=== PATIENT | male | born 1965 | race Caucasian/White ===

== ENCOUNTER 2019-04-01 13:50 | Inpatient (IN) | payer SELFPAY ==
[~2019-04-01] VITALS: Ht 182.9 cm; Wt 70.3 kg
[2019-04-01 13:53] VITALS: BP 125/65
--- NOTE | 2019-04-01 14:00 | NUR ---
Kyra ross in [facility] - 04/01/19 at 1633 by [email or web address] CALLED PT'S NAME, UNABLE TO FIND PT.
--- NOTE | 2019-04-01 14:05 | NUR ---
Kyra ross in ED - 04/01/19 at 1622 by MEDDCV CALLED PT AGAIN, WENT TO OUTSIDE TO CALL PT. NO RESPONSE. CHARGE NURSE MADE AWARE PT LWBS.
--- NOTE | 2019-04-01 16:23 | NUR ---
PATIENT TAKEN TO ER BED 12.
--- NOTE | 2019-04-01 16:30 | NUR ---
PT BIBA TO ED FOR ETOH, PT WAS FOUND AT A BUS STOP, DRINKING RUN ONE AND HALF BOTTLE, BS IN FIELD 110MG/DL. PT AWAKE, ALERT, DIFFICULT TO PROVIDE INFORMATION. RESPONDING BUT INCOHERENT. RR EVEN UNLABORED, IN NO DISTRESS AT THIS TIME. ED MD DR. AN MADE AWARE, WILL CONTINUE TO MONITOR CLOSELY. BED IN LOWEST POSITION.
[2019-04-01] MEDS ORDERED: MULTIVITAMIN-12 10 ML, THIAMINE 100 MG, FOLIC ACID 1 MG, MAGNESIUM SULFATE 50% 2,000 MG... IV SCH ×5 (17:00)
[2019-04-01] MEDS ORDERED: ONDANSETRON 4 MG/2 ML VIAL IVP ONE ×2 (17:00)
[2019-04-01] MEDS ORDERED: FOLIC ACID 5 MG/ML SYR ONE (17:26)
[2019-04-01] MEDS ORDERED: MULTIVITAMIN-12 10 ML VIAL IV ONE ×2 (17:26→22:03)
[2019-04-01] MEDS ORDERED: THIAMINE 200 MG/2 ML VIAL ONE ×2 (17:26→22:03)
[2019-04-01] MEDS ORDERED: MAG SULF 2000 MG/WATER PREMIX 50 ML IV ONE ×2 (17:30→18:55)
--- NOTE | 2019-04-01 17:40 | NUR ---
PT ATTEMPTING TO LEAVE ED, PT WITH UNSTEADY GAIT, UNABLE TO PROVIDE CORRECT ANSWER TO QUESTIONS BEING ASK. DR. AN, CHARGE NURSE APRIL ZUNIGA, SECURITY TALKED TO PT AND EXPLAINED THE RISKS OF LEAVING ED. PT AGREED TO STAY. WENT BACK TO BED 12, PROVIDED WITH MEDICATION ORDERED BY ED MD AND FOOD. WILL CONTINUE TO MONITOR CLOSELY.
[2019-04-01 17:42] LABS: BASOPHILS # (AUTO) 0.1 K/uL (0.00-0.22); BASOPHILS % (AUTO) 1.1 % (0.0-2.0); EOSINOPHILS # (AUTO) 0.7 K/uL (0-0.4); EOSINOPHILS % (AUTO) 11.8 % (0.0-4.0); HEMATOCRIT 33.6 % (36-52); HEMOGLOBIN 11.5 g/dL (12.0-18.0); LYMPHOCYTES # (AUTO) 2.2 K/uL (2.0-11.5); LYMPHOCYTES % (AUTO) 39.9 % (20.5-51.1); MEAN CORPUSCULAR HEMOGLOBIN 33 pg (27-31); MEAN CORPUSCULAR HGB CONC 34 g/dL (33-37); MEAN CORPUSCULAR VOLUME 96.3 fL (80-94); MONOCYTES # (AUTO) 0.3 K/uL (0.8-1.0); MONOCYTES % (AUTO) 5.8 % (1.7-9.3); NEUTROPHILS # (AUTO) 2.3 K/uL (1.8-7.7); NEUTROPHILS % (AUTO) 41.4 % (42.2-75.2); PLATELET COUNT (AUTO) 308 K/uL (140-450); RED BLOOD CELL COUNT(AUTO) 3.49 MIL/uL (4.20-6.10); RED CELL DISTRIBUTION WIDTH 14.5 % (11.6-13.7); WHITE BLOOD COUNT (AUTO) 5.6 K/uL (4.8-10.8)
[2019-04-01 18:03] LABS: ANION GAP 16.1 (8-16); CARBON DIOXIDE 25.9 mmol/L (21-32); CHLORIDE 105 mmol/L (98-107); CREATININE 1.3 mg/dL (0.7-1.3); GFR ARICAN-AMERICAN 74 mL/min (>90); GLUCOSE 95 mg/dL (74-106); SODIUM SERUM 143 mmol/L (136-145); UREA NITROGEN, BLOOD 27 mg/dL (7-18)
[2019-04-01 18:08] LABS: ALBUMIN 3.7 g/dL (3.4-5.0); ASPARTATE AMINOTRANSFERASE 23 U/L (15-37); SALICYLATE < 2.8 mg/dL (2.8-20.0); TOTAL BILIRUBIN 0.3 mg/dL (0.0-1.0)
[2019-04-01 18:09] LABS: ACETAMINOPHEN < 0.5 ug/ml (10-30)
[2019-04-01] MEDS ORDERED: LORazepam 2 MG/ML VIAL IVP PRN (18:55)
[2019-04-01] MEDS ORDERED: HYDROcodone/APAP 5/325 MG 1 TAB TAB PO PRN (18:55)
[2019-04-01] MEDS ORDERED: KETOROLAC 30 MG/ML VIAL IVP PRN (18:55)
[2019-04-01] MEDS ORDERED: DOCUSATE SODIUM 100 MG GELCAP PO PRN (18:55)
[2019-04-01] MEDS ORDERED: MORPHINE SULFATE 2 MG/ML SYR IVP PRN (18:55)
[2019-04-01] MEDS ORDERED: ONDANSETRON 4 MG/2 ML VIAL IM/IVP PRN (18:55)
[2019-04-01] MEDS ORDERED: ACETAMINOPHEN 325 MG TAB PO PRN (18:55)
[2019-04-01] MEDS ORDERED: THIAMINE 200 MG/2 ML VIAL IM ONE (19:00)
[2019-04-01] MEDS ORDERED: FOLIC ACID 5 MG/ML SYR IM ONE (19:00)
[2019-04-01] MEDS ORDERED: MULTIVITAMIN-12 10 ML in NACL 0.9% 1,000 ML IV ONE ×2 (19:00→19:15)
--- NOTE | 2019-04-01 19:30 | NUR ---
PT IN BED RESTING COMFORTABLY, IN NO DISTRESS AT THIS TIME.
[2019-04-01 20:00] VITALS: BP 101/59
--- NOTE | 2019-04-01 20:00 | NUR ---
RECEIVED PT FROM BUS MECHANICAPRIL HINKLE. A/O X1 PERSON. DISCUSSED PLAN OF CARE. REINFORCEMENT NEEDED. NASAL CANULA 2L. NO RESPIRATORY DISTRESS. SKIN IS INTACT. L AC 20 G. PATENT AND INTACT, INFUSING MAG. R HAND 20G PATENT AND INTACT SALINE LOCK. AMBULATORY. UNSTEADY GAIT FROM DX. FALL RISK PROTOCOL IN PLACE. BED IN LOWEST POSITION. CALL LIGHT WITHIN REACH. VITALS WNL. NPO EXCEPT MEDS. WILL CONTINUE.
--- NOTE | 2019-04-01 20:10 | NUR ---
Patient will be admitted to care of DR. PINEDA. Admited to [facility]. Will go to room 111B. Belongings list completed. Bedside Report given to APRIL Herrera.
--- NOTE | 2019-04-01 20:20 | NUR ---
PT DOES NOT WANT TO WEAR FALL RISK GOWN. DOES NOT WANT TO BE BOTHERED. WILL TRY TO PUT ON HIM IN THE MORNING.
--- NOTE | 2019-04-01 20:30 | NUR ---
PT WANTS TO GO AMA BECAUSE THERE IS NO REASON FOR HIM TO BE HERE, SAYS IT IS NOT NECESSARY. EDUCATED ON TREATMENT. SAYS HE WILL TRY TO STAY UNTIL MORNING FOR WHEN DOCTOR SEES HIM. WILL CONTINUE TO MONITOR.
[2019-04-01 21:22] LABS: MAGNESIUM 2.3 mg/dL (1.8-2.4); PHOSPHORUS 5.2 mg/dL (2.5-4.9); THYROID STIMULATING HORMONE 2.45 uIU/mL (0.34-3.74)
[2019-04-01] MEDS ORDERED: LACTULOSE 20 GM/30 ML UDC PO ONE (21:35)
--- NOTE | 2019-04-01 21:45 | NUR ---
DR HILL ORDERED BANANA BAG AND LIBRIUM. WILL ADMINISTER.
--- NOTE | 2019-04-01 21:47 | NUR ---
EMAR MEDS NOT DOCUMENTED BY ER. BANANA BAG AND MAG ORDERED BY DR AN IN ER BUT NO VERIFICATION IF ADMINISTERED. WILL CALL ER.
--- NOTE | 2019-04-01 21:50 | NUR ---
ER DID NOT UPDATE MEDS GIVEN IN ER IN THE EMAR. CALLED ER TO VERIFY IF BANANA BAG AND MAG WAS GIVEN IN ER. ER UNABLE TO VERIFY DUE TO NURSE NOT ON SITE ANYMORE.
--- NOTE | 2019-04-01 22:00 | NUR ---
CALLED DR HILL UNDER DR PINEDA GROUP TO MAKE AWARE OF ER ORDERING BANANA BAG BUT UNABLE TO VERIFY IF IT WAS GIVEN IN ER. SAYS TO ADMINISTER BANANA BAG.
--- NOTE | 2019-04-01 22:04 | NUR ---
PULLED MAG FROM [employer] BUT WASTED DUE TO ER ADMINISTERING IN ER ALTHOUGH NOT DOCUMENTED BY ER. MAG LEFT ON PT IV PUMP EMPTY. AND MAG LEVEL WNL 2.3. DR HILL DAYS NOT TO ADMINISTER. WILL NOT ADMINISTER MAG. ADMINISTERED BANANA BAG.
[2019-04-01] MEDS ORDERED: chlordiazePOXIDE 25 MG CAP ONE (22:13)
[2019-04-01] MEDS: DEXT 5% /NACL 0.9% 1,000 ML IV SCH (22:18)
[2019-04-01 22:38] LABS: APPEARANCE,URINE CLEAR (CLEAR); BILIRUBIN,URINE NEGATIVE (NEGATIVE); BLOOD, URINE NEGATIVE (NEGATIVE); COLOR,URINE YELLOW (YELLOW); LEUKOCYTE ESTERASE ,URINE NEGATIVE (NEGATIVE); NITRITE, URINE NEGATIVE (NEGATIVE); PH,URINE 5.5 (5.0-9.0); UGLUCOSE NEGATIVE (NEGATIVE)
[2019-04-01 23:03] LABS: BARBITURATE, URINE NEG. ng/ml (NEG <=200); BENZODIAZEPINE, URINE NEG. ng/mL (NEG <=200); CANNABINOID, URINE NEG. ng/mL (NEG <=50); COCAINE, URINE NEG. ng/mL (NEG <=300); OPIATE, URINE NEG. ng/mL (NEG <=2000); PHENCYCLIDINE SCREEN,URINE NEG. ng/mL (NEG <=25)
--- NOTE | 2019-04-02 | NUR ---
PT REFUSED TO HAVE VITALS TAKEN. WANTS TO SLEEP. WILL CONTINUE TO MONITOR. HR STABLE 60 ACCORDING TO TELE STRIP.
--- NOTE | 2019-04-02 01:21 | NUR ---
PT SLEEPING IN BED EASILY AROUSABLE. ABLE TO MAKE NEEDS KNOWN. NO SIGNS OF DISTRESS. DOES NOT WANT TO WEAR NC BECAUSE IT BOTHERS HIM. O2 SAT 95. WILL CONTINUE TO MONITOR.
--- NOTE | 2019-04-02 03:28 | NUR ---
PT SLEEPING. NO SIGNS OF RESP DISTRESS. EVEN CHEST RISE. NO SOB. NO COMPLAINTS. NO PAIN AT THIS TIME. WILL CONTINUE TO MONITOR.
--- NOTE | 2019-04-02 04:00 | NUR ---
REFUSED VITALS TO BE TAKEN. WANTS TO SLEEP. NO SIGNS OF LABORED BREATHING. NO SOB. EVEN CHEST RISE. WILL CONTINUE TO MONITOR. CALL LIGHT WITHIN REACH.
[2019-04-02] MEDS: DEXT 5% /NACL 0.9% 1,000 ML IV SCH ×2 (04:51→14:53)
--- NOTE | 2019-04-02 05:50 | NUR ---
SPECIAL EDUCATION RESOURCE ROOM TEACHER AT BEDSIDE.
--- NOTE | 2019-04-02 06:18 | NUR ---
WILL ENDORSE PT TO DAYSHIFT RN FOR CONTINUITY OF CARE. PT IN STABLE CONDITION. WILL CONTINUE TO MONITOR.
--- NOTE | 2019-04-02 07:30 | NUR ---
Report received from night nurse, Pt awake a/o x3 with confusion. Pt denies pain, denies n/v. Call light and personal items within reach, safety and fall precautions in place, will continue to monitor.
[2019-04-02 07:35] LABS: ANION GAP 12.5 (8-16); CARBON DIOXIDE 26.8 mmol/L (21-32); CREATININE 1.1 mg/dL (0.7-1.3); POTASSIUM 4.3 mmol/L (3.5-5.1)
[2019-04-02 07:50] LABS: MAGNESIUM 2.2 mg/dL (1.8-2.4)
[2019-04-02 07:51] LABS: PHOSPHORUS 4.7 mg/dL (2.5-4.9)
[2019-04-02 08:00] VITALS: BP 135/75
[2019-04-02] MEDS ORDERED: CALCIUM ACETATE 667 MG TAB PO ONE (08:00)
--- NOTE | 2019-04-02 08:58 | NUR ---
PATIENT HAS BEEN SCREENED AND CATEGORIZED MODERATE NUTRITION RISK. PATIENT WILL BE SEEN WITHIN 3-5 DAYS OF ADMISSION. 04/04/[address]
[2019-04-02] MEDS ORDERED: THIAMINE 200 MG/2 ML VIAL IV SCH (09:00)
[2019-04-02] MEDS ORDERED: FOLIC ACID 1 MG TAB PO SCH (09:00)
[2019-04-02] MEDS ORDERED: PANTOPRAZOLE 40 MG INJ VIAL IVP SCH (09:00)
[2019-04-02] MEDS ORDERED: THIAMINE 100 MG TAB PO SCH (09:00)
[2019-04-02] MEDS ORDERED: MULTIVITAMIN 1 TAB PO SCH (09:00)
[2019-04-02] MEDS ORDERED: LACTULOSE 20 GM/30 ML UDC PO SCH (09:00)
[2019-04-02] MEDS: chlordiazePOXIDE 25 MG CAP PO SCH ×3 (09:20→17:22)
--- NOTE | 2019-04-02 10:30 | NUR ---
Pt sleeping at this time, appears comfortable, call light and personal items within reach, safety and fall precautions in place, will continue to monitor.
--- NOTE | 2019-04-02 12:07 | NUR ---
PT REFUSED EKG/ECHOCARDIOGRAM. NOTIFIED DR. WELCH AND APRIL OCAMPO
--- NOTE | 2019-04-02 12:30 | NUR ---
Pt refusing treatment and procedures, notified charge nurse and MD and security Attempted to reorient pt and provide reassurance, will reattempt.
--- NOTE | 2019-04-02 12:42 | NUR ---
Pt a/o x2 w confusion agitated, threatening to remove IV lines, states he is [employer] and needs to leave, notified charge nurse, MD and security of pt threats and behavior. Attempted to reorient pt and provide reassurance, Ativan administered per order.
--- NOTE | 2019-04-02 13:00 | NUR ---
Pt sleeping at this time, appears comfortable, call light and personal items within reach, safety and fall precautions in place, will continue to monitor.
[2019-04-02 13:11] LABS: BASOPHILS # (AUTO) 0.1 K/uL (0.00-0.22); BASOPHILS % (AUTO) 1.3 % (0.0-2.0); EOSINOPHILS # (AUTO) 0.5 K/uL (0-0.4); EOSINOPHILS % (AUTO) 12.7 % (0.0-4.0); HEMATOCRIT 33.9 % (36-52); HEMOGLOBIN 11.2 g/dL (12.0-18.0); LYMPHOCYTES # (AUTO) 1.5 K/uL (2.0-11.5); LYMPHOCYTES % (AUTO) 35.4 % (20.5-51.1); MEAN CORPUSCULAR HEMOGLOBIN 33 pg (27-31); MEAN CORPUSCULAR HGB CONC 33 g/dL (33-37); MEAN CORPUSCULAR VOLUME 99.9 fL (80-94); MONOCYTES # (AUTO) 0.4 K/uL (0.8-1.0); MONOCYTES % (AUTO) 9.4 % (1.7-9.3); NEUTROPHILS # (AUTO) 1.8 K/uL (1.8-7.7); NEUTROPHILS % (AUTO) 41.2 % (42.2-75.2); PLATELET COUNT (AUTO) 230 K/uL (140-450); RED BLOOD CELL COUNT(AUTO) 3.39 MIL/uL (4.20-6.10); RED CELL DISTRIBUTION WIDTH 15.1 % (11.6-13.7); WHITE BLOOD COUNT (AUTO) 4.3 K/uL (4.8-10.8)
--- NOTE | 2019-04-02 13:29 | NUR ---
SW attempted to conduct assessment but patient was asleep. SW called patient's name but patient did not respond. SW will attempt to conduct assessment at a later time.
--- NOTE | 2019-04-02 14:11 | NUR ---
Called Rt and US to follow up on ordered exams per both departments, they will repeat attempt to do ordered procedures.
--- NOTE | 2019-04-02 14:30 | NUR ---
US tech at bedside to complete abdominal US, assisted to initiate exam.
--- NOTE | 2019-04-02 14:48 | NUR ---
RT and diesel technician mechanic at bedside to complete exams per order; Dr Foreman cardiolory in house to round on Pt.
[2019-04-02 16:00] VITALS: BP 147/89
--- NOTE | 2019-04-02 16:30 | NUR ---
Pt sleeping at this time, appears comfortable, call light and personal items within reach, safety and fall precautions in place, will continue to monitor. Dr Acosta notifeid echo complete and results pending, also notified results of abdominal us and EKG, and followed up regarding pt current NPO status; per MD pt will remain NPO at this time.
--- NOTE | 2019-04-02 19:15 | NUR ---
Pt sleeping at this time, appears comfortable, family remains at bedside, call light and personal items within reach, safety and fall precautions in place, will continue to monitor. Addendum: 04/02/19 at 1916 by Hollie Garcia RN Pt sleeping at this time, appears comfortable, no family at bedside during shift, call light and personal items within reach, safety and fall precautions in place, Report endorsed to [facility] .
--- NOTE | 2019-04-02 19:16 | NUR ---
RECEIVED REPORT FROM CHIVO CHUN, PT A/O X 3. PERSON, PLACE, TIME. DISCUSSED PLAN OF CARE WITH PT. VERBALIZED UNDERSTANDING. REINFORCEMENT NEEDED. ROOM AIR. NO SIGNS OF RESP DISTRESS. FALL RISK PREC IN PLACE. R FA 20G PATENT AND INTACT. L AC 20 PATENT AND INTACT. BOTH SALINE LOCK. SKIN INTACT. BED IN LOWEST POSITION. CALL LIGHT WITHIN REACH. WILL CONTINUE TO MONITOR.
--- NOTE | 2019-04-02 20:00 | NUR ---
REFUSED PT VITALS. EDUCATED IMPORTANCE OF MONITORING VITALS. DID NOT WANT VITALS TAKEN.
--- NOTE | 2019-04-02 20:30 | NUR ---
PT STATES HE WANTS TO LEAVE AMA. STATES HE HAS TO GO TAKE CARE OF THINGS. EDUCATED ON WHY PT IS HERE AND HIS TREATMENT. STILL WANTS TO LEAVE.
--- NOTE | 2019-04-02 20:35 | NUR ---
SPOKE WITH RESIDENT DR CARMEN PINEDA IN REGARDS TO CONCERN IF HE CAN LEAVE AMA DUE TO HIS MENTAL STATE A/O X3. RESIDENT SAYS THAT PSYCH DR SAYS THAT THIS IS HIS BASELINE SO HE CAN LEAVE AMA IF HE WISHES TO DO SO.
--- NOTE | 2019-04-02 20:40 | NUR ---
SPOKE WITH PT IN REGARDS TO HIS DECISION TO LEAVE. ASKED IF HE NEEDED ANY RESOURCES. EDUCATED AND ADVISED TO STAY. HE STATED NO, HE JUST WANTS TO LEAVE.
--- NOTE | 2019-04-02 21:00 | NUR ---
PT GETTING READY TO LEAVE FACILITY. GETTING CLOTHED AT THE MOMENT. WILL CONTINUE TO MONITOR.
--- NOTE | 2019-04-02 21:20 | NUR ---
REMOVED BOTH IVS. CANNULAS ARE INTACT. NO SIGNS OF DISTRESS. TOLERATED WELL. REMOVED WRIST BANDS. STATES DOES NOT WANT ANYONE TO BE CALLED FOR HIM. HE WILL AMBULATE WITH STANDBY ASSIST, STATES HE DOES NOT WANT TO BE IN WHEELCHAIR. STATES HE WILL WALK TO WHERE HE NEEDS TO GO.
--- NOTE | 2019-04-02 21:30 | NUR ---
ASKED THE PT TO SIT TO BE WHEELED OUT ON WHEEL CHAIR FOR SAFETY MEASURES BECAUSE HIS GAIT LOOKED UNSTEADY. PT REFUSED AND INSISTED HE WILL WALK. WALKED BESIDE PT OUT OF [facility]. ASKED AGAIN IF HE NEEDED RESOURCES FOR A CARE HOME OR IF I COULD CALL SOMEONE FOR HIM. HE STATED NO, HE DOES NOT KEEP IN CONTACT WITH HIS FAMILY. HE STATED HE WANTS TO WALK.
--- NOTE | 2019-04-02 21:31 | NUR ---
PT AMA LEFT IN STABLE CONDITION.
[2019-04-03 09:20] LABS: T4 (THYROXINE) 6.6 ug/dL (4.5-12.0)
== END 2019-04-02 23:20 | disposition left against medical advice (07) | DRG 441 ==
LOC: MED 13:50 → MTU 19:01
PROVIDERS: ADMIT General Practice; ATTEND General Practice
DX: K72.90 Hepatic failure, unspecified without coma (principal); K85.90 Acute pancreatitis without necrosis or infection, unspecified; G93.41 Metabolic encephalopathy; N17.0 Acute kidney failure with tubular necrosis; K86.1 Other chronic pancreatitis; F10.10 Alcohol abuse, uncomplicated; Y90.9 Presence of alcohol in blood, level not specified; D64.9 Anemia, unspecified; E83.39 Other disorders of phosphorus metabolism; E86.0 Dehydration; Z53.21 Procedure and treatment not carried out due to patient leaving prior to being seen by health care provider; F20.9 Schizophrenia, unspecified; Z59.0 Homelessness; Z88.8 Allergy status to other drugs, medicaments and biological substances
CPT/HCPCS: 36415; 71045; 76700; 80048; 80053; 80305; 81003; 82140; 82150; 83036; 83605; 83615; 83690; 83735; 83880; 84100; 84134; 84436; 84443; 84484; 85025; 85610; 85730; 87081; 93005; 96365; 96366; 96375; 97116; 97161-GP; 99285; A9153; C9113; G0480; G0482; J2060; J2405; J3411; J3475; J3490; J7030; J7042; Q0092